=== PATIENT | male | born 1995 | race Caucasian/White ===

== ENCOUNTER 2025-05-09 12:25 | Emergency (ER) | payer SELFPAY ==
[~2025-05-09] VITALS: Ht 172.7 cm; Wt 78.0 kg
[2025-05-09 12:50] VITALS: TEMP 36.7; O2SAT 99
[2025-05-09 15:49] VITALS: BP 120/83; PULSE 60; RESP 18; O2SAT 100
== END 2025-05-09 15:49 | disposition home or self-care (01) ==
LOC: ER 12:25
DX: S62.306A Unspecified fracture of fifth metacarpal bone, right hand, initial encounter for closed fracture (principal); X58.XXXA Exposure to other specified factors, initial encounter; Y93.89 Activity, other specified; Y92.89 Other specified places as the place of occurrence of the external cause; Y99.8 Other external cause status
CPT/HCPCS: 29125; 73130; 99283